=== PATIENT | female | born 1980 | race American Indian/Alaskan Native ===

== ENCOUNTER 2016-11-27 07:48 | Inpatient (IN) | payer BC, MEDICAID ==
--- NOTE | 2016-11-27 09:56 | History and Physical Report ---
History of Present Illness Date of examination: 11/27/16 Date of admission: 11/27/16 07:49 Chief complaint: Intense Labor Pains History of present illness: Early entry to care, co-jaleel with [facility] due to AMA and elevated blood pressures. States she has never been diagnosed with CHTN, but had elevated blood pressures on and off throughout the . course complicated by Anemia (taking FESO4), low Vitamin D (taking Vit. D), and a abnormal 1hour GTT, following a normal 3 hour 3GTT. Elevated blood pressures upon admission, denies HAs, visual changes, and epigastic pain, admits to mild nausea and a trace of edema. 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) Family/Genetic History: none Social history: no significant social history, single, smoking - Obstetrical History Expected Date of Delivery: 12/08/16 Actual Gestation: 38 Week(s) 3 Day(s) : 4 Para: 2 Hx # Term Pregnancies: 2 Spontaneous Abortions: 1 Number of Living Children: 2 #1 Infant Gender: Female year: 1,[birth year] Birthweight: 3.175 kg Method of Delivery: Vaginal Gestational age at delivery: 40 #2 Infant Gender: Female year: 2,[birth year] Birthweight: 3.629 kg Method of Delivery: Vaginal Gestational age at delivery: 40 Medications and Allergies Allergies Allergy/AdvReac Type Severity Reaction Status Date / Time No Known Allergies Allergy Verified 11/27/16 09:35 Home Medications Medication Instructions Recorded Confirmed Last Taken Type Cyclobenzaprine HCl [Flexeril 5 MG 5 mg PO TID #15 tab 06/17/16 Unknown Rx TAB] Active Meds: Active Medications Lactated Ringer's (Lactated Ringers) 1,500 mls @ 2,250 mls/hr IV PREOP NR Stop: 11/27/16 18:00 Review of Systems Breasts: normal Gastrointestinal: nausea Genitourinary: normal appearance Rectal Exam: deferred - Vital Signs Vital signs: Vital Signs Pulse BP Pulse Ox 98 H 148/101 99 11/27/16 08:08 11/27/16 08:08 11/27/16 08:08 Temp Pulse Resp BP Pulse Ox 98.1 F 96 H 18 155/98 100 11/27/16 08:18 11/27/16 09:42 11/27/16 08:18 11/27/16 09:42 11/27/16 08:54 - Physical Exam Breasts: Positive: normal Lungs: Positive: Clear to auscultation, Normal air movement Abdomen: Positive: normal appearance, soft, normal bowel sounds Genitourinary (Female): Positive: normal external genitalia, normal perenium Vagina: Positive: normal moisture Uterus: Positive: enlarged Anus/Rectum: Positive: normal perianal skin Extremities: Positive: normal - Obstetrical FHR: category 2 FHR comments: FHR: 138, moderate varability, +accels, +occ mild varabile decel, CTX q 1-2mins Cervical Dilatation: 5 (Large amount of clear fluid upon AROM ar 0935) Cervical Effacement Percentage: 80 station: -1 Uterine Contraction Frequency (min): 1-2 Uterine Contraction Duration: 40secs Uterine Contraction Pattern: Regular Uterine Tone Measurement Phase: Contraction Uterine Contraction Intensity: Strong/Firm Results All other labs normal. Assessment and Plan A: IUP at 38 3/7 Weeks Gestational HTN Category II Tracing Active Labor GBS Negative P: Admit to L&D per routine orders H labs (results pending) AROM (clear) Prepare for Epidural Consult Dr. Sánchez
[2016-11-27] MEDS ORDERED: SUBLIMAZE IV PRN (10:00)
[2016-11-27] MEDS ORDERED: STADOL IV PRN (10:00)
[2016-11-27] MEDS ORDERED: MINERAL OIL PO PRN (10:00)
[2016-11-27] MEDS ORDERED: BRETHINE SUB-Q PRN (10:00)
[2016-11-27] MEDS ORDERED: ZOFRAN IV PRN (10:00)
[2016-11-27] MEDS ORDERED: ePHEDrine SULFATE IV PRN ×2 (10:00→13:00)
[2016-11-27] MEDS ORDERED: BRETHINE IVP PRN (10:00)
[2016-11-27] MEDS ORDERED: LACTATED RINGERS 1,000 ML IV SCH (10:00)
[2016-11-27] MEDS ORDERED: NARCAN 0.4 MG/1 ML IV PRN (10:00)
[2016-11-27 10:53] LABS: Hematocrit 32.7 % (30.3-42.9); Hemoglobin 10.5 gm/dl (10.1-14.3); Mean Corpuscular HGB Conc 32 % (30-34); Mean Corpuscular Hemoglobin 28 pg (28-32); Mean Corpuscular Volume 86 fl (79-97); Platelet Count 163 K/mm3 (140-440); Red Blood Count 3.79 M/mm3 (3.65-5.03); White Blood Count 11.1 K/mm3 (4.5-11.0)
--- NOTE | 2016-11-27 11:04 | Progress Note ---
Assessment and Plan A: IUP at 38 3/7 Weeks Preeclampsia BPs (140s/90-100s to 170s/110s) Category I Tracing Active Labor GBS Negative P: Start Magnesium Sulfate 4G bolus/2Gs hourly PIH labs (results pending) Subjective - Subjective Date of service: 11/27/16 Interval history: Early entry to care, co-jaleel with [facility] due to AMA and elevated blood pressures. States she has never been diagnosed with CHTN, but had elevated blood pressures on and off throughout the . course complicated by Anemia (taking FESO4), low Vitamin D (taking Vit. D), and a abnormal 1hour GTT, following a normal 3 hour 3GTT. Elevated blood pressures upon admission, denies HAs, visual changes, and epigastic pain, admits to mild nausea and a trace of edema. Patient reports: other (Denies HAs, Visual Changes, and epigastic pain; admits to mild nausea) Objective - Vital Signs Vital Signs: Vital Signs - 12hr 11/27/16 11/27/16 11/27/16 08:08 08:13 08:18 Temperature 98.1 F Pulse Rate 98 H 104 H 97 H Respiratory 18 Rate Blood Pressure 148/101 O2 Sat by Pulse 99 99 99 Oximetry 11/27/16 11/27/16 11/27/16 08:23 08:24 08:29 Temperature Pulse Rate 100 H 89 115 H Respiratory Rate Blood Pressure 163/116 O2 Sat by Pulse 99 99 96 Oximetry 11/27/16 11/27/16 11/27/16 08:30 08:42 08:49 Temperature Pulse Rate 104 H 91 H 91 H Respiratory Rate Blood Pressure 154/95 O2 Sat by Pulse 97 100 Oximetry 11/27/16 11/27/16 11/27/16 08:54 08:58 09:12 Temperature Pulse Rate 93 H 101 H 90 Respiratory Rate Blood Pressure 168/92 151/99 O2 Sat by Pulse 100 Oximetry 11/27/16 11/27/16 11/27/16 09:28 09:42 09:57 Temperature Pulse Rate 92 H 96 H 88 Respiratory Rate Blood Pressure 155/93 155/98 156/102 O2 Sat by Pulse Oximetry 11/27/16 11/27/16 11/27/16 09:59 10:01 10:04 Temperature Pulse Rate 92 H 77 Respiratory 18 Rate Blood Pressure O2 Sat by Pulse 100 100 Oximetry 11/27/16 11/27/16 11/27/16 10:09 10:12 10:14 Temperature Pulse Rate 77 82 89 Respiratory Rate Blood Pressure 164/88 O2 Sat by Pulse 100 100 Oximetry 11/27/16 11/27/16 11/27/16 10:19 10:24 10:28 Temperature Pulse Rate 76 84 82 Respiratory Rate Blood Pressure 175/87 O2 Sat by Pulse 100 100 Oximetry 11/27/16 11/27/16 11/27/16 10:29 10:34 10:39 Temperature Pulse Rate 74 100 H 93 H Respiratory Rate Blood Pressure O2 Sat by Pulse 100 100 100 Oximetry 11/27/16 11/27/16 11/27/16 10:44 10:45 10:49 Temperature Pulse Rate 95 H 107 H 93 H Respiratory Rate Blood Pressure 175/109 O2 Sat by Pulse 100 100 Oximetry 11/27/16 11/27/16 10:54 10:57 Temperature Pulse Rate 89 83 Respiratory Rate Blood Pressure 141/92 O2 Sat by Pulse 100 Oximetry - Exam Breasts: deferred, normal Cardiovascular: Regular rate Lungs: Clear to auscultation Abdomen: Present: normal appearance FHR: category 1 Uterine Contraction Monitor Mode: External Cervical Dilatation: 5 Cervical Effacement Percentage: 80 station: -1 Uterine Contraction Frequency (min): 1-2 Uterine Contraction Pattern: Regular Uterine Contraction Intensity: Strong/Firm Extremities: edema (trace edema) - Labs Labs: Abnormal Labs 11/27/16 09:11 WBC 11.1 H RDW 17.0 H Laboratory Results - last 24 hr 11/27/16 11/27/16 09:11 09:11 WBC 11.1 H RBC 3.79 Hgb 10.5 Hct 32.7 MCV 86 MCH 28 MCHC 32 RDW 17.0 H Plt Count 163 Blood Type A POSITIVE
[2016-11-27] MEDS ORDERED: MAGNESIUM SULFATE 4GM/100ML 4 GM/100 ML BAG IV ONE (11:30)
[2016-11-27] MEDS ORDERED: ePHEDrine SULFATE ONE (11:31)
[2016-11-27] MEDS ORDERED: MAGNESIUM SULFATE 40GM/1000ML 40 GM/1,000 ML BAG IV SCH ×2 (12:00→17:00)
--- NOTE | 2016-11-27 12:16 | Anesthesia Consultation ---
Anesthesia Consult and Med Hx Date of service: 11/27/16 - Airway Anesthetic Teeth Evaluation: Good ROM Head & Neck: Adequate Mental/Hyoid Distance: Adequate Mallampati Class: Class II Intubation Access Assessment: Probably Good - Pre-Operative Health Status ASA Pre-Surgery Classification: ASA2 Proposed Anesthetic Plan: Epidural, Spinal - Pulmonary Hx Asthma: No - Cardiovascular System Hx Hypertension: No (PIH) - Central Nervous System Hx Seizures: No Hx Psychiatric Problems: No - Endocrine Hx Renal Disease: No Hx Hypothyroidism: No Hx Hyperthyroidism: No - Hematic Hx Anemia: Yes (taking Iron) Hx Sickle Cell Disease: No - Other Systems Hx Alcohol Use: No
[2016-11-27 12:46] LABS: Bacteria,Urine 1+ /HPF (Negative); Bilirubin,Urine NEG (Negative); Blood,Urine NEG (Negative); Ketones,Urine 80 mg/dL (Negative); Leukocyte Esterase,Urine NEG (Negative); Mucus,Urine 2+ /HPF; Nitrite,Urine NEG (Negative); Urobilinogen,Urine < 2.0 mg/dL (<2.0)
[2016-11-27] MEDS ORDERED: BENADRYL IV PRN (13:00)
[2016-11-27] MEDS ORDERED: fentaNYL-BUPIV 2 MCG/ML-0.125% 200 MCG/100 ML BAG EPIDURAL SCH (13:00)
[2016-11-27] MEDS: LACTATED RINGERS 1,500 ML IV NR ×2 (13:23→13:27)
[2016-11-27 13:46] LABS: Alanine Aminotransferase 12 units/L (7-56); Lactate Dehydrogenase 189 units/L (91-180); Uric Acid 3.2 mg/dL (3.5-7.6)
[2016-11-27] MEDS ORDERED: PITOCin/NS 30 UNIT/500ML 30,000 MILLIUNITS/500 ML BAG IV ONE (13:57)
[2016-11-27] MEDS ORDERED: PITOCin/NS 30 UNIT/500ML 30 UNITS/500 ML BAG IV SCH (14:00)
--- NOTE | 2016-11-27 14:06 | Progress Note ---
Assessment and Plan A: IUP at 38 3/7 Weeks Preeclampsia Category I Tracing Active Labor GBS Negative P:Continue MagSO4 2G/hourly Start Pitocin Augmentation Multiple Maternal Position Changes Subjective - Subjective Interval history: Early entry to care, co-jaleel with [facility] due to AMA and elevated blood pressures. States she has never been diagnosed with CHTN, but had elevated blood pressures on and off throughout the . course complicated by Anemia (taking FESO4), low Vitamin D (taking Vit. D), and a abnormal 1hour GTT, following a normal 3 hour 3GTT. Elevated blood pressures upon admission, denies HAs, visual changes, and epigastic pain, admits to mild nausea and a trace of edema. Patient reports: other (resting well under epidural anesthesia; voices no compliants) Objective - Vital Signs Vital Signs: Vital Signs - 12hr 11/27/16 11/27/16 11/27/16 08:08 08:13 08:18 Temperature 98.1 F Pulse Rate 98 H 104 H 97 H Respiratory 18 Rate Blood Pressure 148/101 O2 Sat by Pulse 99 99 99 Oximetry 11/27/16 11/27/16 11/27/16 08:23 08:24 08:29 Temperature Pulse Rate 100 H 89 115 H Respiratory Rate Blood Pressure 163/116 O2 Sat by Pulse 99 99 96 Oximetry 11/27/16 11/27/16 11/27/16 08:30 08:42 08:49 Temperature Pulse Rate 104 H 91 H 91 H Respiratory Rate Blood Pressure 154/95 O2 Sat by Pulse 97 100 Oximetry 11/27/16 11/27/16 11/27/16 08:54 08:58 09:12 Temperature Pulse Rate 93 H 101 H 90 Respiratory Rate Blood Pressure 168/92 151/99 O2 Sat by Pulse 100 Oximetry 11/27/16 11/27/16 11/27/16 09:28 09:42 09:57 Temperature Pulse Rate 92 H 96 H 88 Respiratory Rate Blood Pressure 155/93 155/98 156/102 O2 Sat by Pulse Oximetry 11/27/16 11/27/16 11/27/16 09:59 10:01 10:04 Temperature Pulse Rate 92 H 77 Respiratory 18 Rate Blood Pressure O2 Sat by Pulse 100 100 Oximetry 11/27/16 11/27/16 11/27/16 10:09 10:12 10:14 Temperature Pulse Rate 77 82 89 Respiratory Rate Blood Pressure 164/88 O2 Sat by Pulse 100 100 Oximetry 11/27/16 11/27/16 11/27/16 10:19 10:24 10:28 Temperature Pulse Rate 76 84 82 Respiratory Rate Blood Pressure 175/87 O2 Sat by Pulse 100 100 Oximetry 11/27/16 11/27/16 11/27/16 10:29 10:34 10:39 Temperature Pulse Rate 74 100 H 93 H Respiratory Rate Blood Pressure O2 Sat by Pulse 100 100 100 Oximetry 11/27/16 11/27/16 11/27/16 10:44 10:45 10:49 Temperature Pulse Rate 95 H 107 H 93 H Respiratory Rate Blood Pressure 175/109 O2 Sat by Pulse 100 100 Oximetry 11/27/16 11/27/16 11/27/16 10:54 10:57 10:59 Temperature Pulse Rate 89 83 76 Respiratory Rate Blood Pressure 141/92 O2 Sat by Pulse 100 100 Oximetry 11/27/16 11/27/16 11/27/16 11:04 11:09 11:14 Temperature Pulse Rate 89 106 H 96 H Respiratory Rate Blood Pressure 179/101 O2 Sat by Pulse 100 100 100 Oximetry 11/27/16 11/27/16 11/27/16 11:19 11:24 11:29 Temperature Pulse Rate 82 84 101 H Respiratory Rate Blood Pressure 167/72 O2 Sat by Pulse 100 100 100 Oximetry 11/27/16 11/27/16 11/27/16 11:34 11:39 11:42 Temperature Pulse Rate 99 H 101 H 83 Respiratory Rate Blood Pressure 169/75 O2 Sat by Pulse 100 100 Oximetry 11/27/16 11/27/16 11/27/16 11:44 11:49 11:54 Temperature Pulse Rate 108 H 104 H 100 H Respiratory Rate Blood Pressure O2 Sat by Pulse 100 100 100 Oximetry 11/27/16 11/27/16 11/27/16 11:57 12:02 12:04 Temperature Pulse Rate 97 H 94 H 82 Respiratory Rate Blood Pressure 157/72 150/73 141/68 O2 Sat by Pulse 100 Oximetry 11/27/16 11/27/16 11/27/16 12:06 12:07 12:08 Temperature Pulse Rate 87 86 88 Respiratory Rate Blood Pressure 141/76 147/69 O2 Sat by Pulse 100 Oximetry 11/27/16 11/27/16 11/27/16 12:10 12:12 12:14 Temperature Pulse Rate 85 83 78 Respiratory Rate Blood Pressure 145/76 151/85 136/68 O2 Sat by Pulse 100 Oximetry 11/27/16 11/27/16 11/27/16 12:16 12:17 12:18 Temperature Pulse Rate 84 83 83 Respiratory Rate Blood Pressure 136/76 132/76 O2 Sat by Pulse 100 Oximetry 11/27/16 11/27/16 11/27/16 12:20 12:22 12:27 Temperature Pulse Rate 84 81 77 Respiratory Rate Blood Pressure 143/76 O2 Sat by Pulse 100 100 Oximetry 11/27/16 11/27/16 11/27/16 12:32 12:36 12:37 Temperature Pulse Rate 84 90 75 Respiratory Rate Blood Pressure 144/84 O2 Sat by Pulse 100 100 Oximetry 11/27/16 11/27/16 11/27/16 12:42 12:47 12:51 Temperature Pulse Rate 80 86 91 H Respiratory Rate Blood Pressure 136/94 O2 Sat by Pulse 100 100 Oximetry 11/27/16 11/27/16 11/27/16 12:52 12:57 13:02 Temperature Pulse Rate 83 81 80 Respiratory Rate Blood Pressure O2 Sat by Pulse 100 100 100 Oximetry 11/27/16 11/27/16 11/27/16 13:06 13:07 13:12 Temperature Pulse Rate 80 80 89 Respiratory Rate Blood Pressure 145/79 O2 Sat by Pulse 100 100 Oximetry 11/27/16 11/27/16 11/27/16 13:17 13:21 13:22 Temperature Pulse Rate 98 H 87 87 Respiratory Rate Blood Pressure 150/75 O2 Sat by Pulse 100 100 Oximetry 11/27/16 11/27/16 11/27/16 13:27 13:32 13:36 Temperature Pulse Rate 82 83 94 H Respiratory Rate Blood Pressure 138/95 O2 Sat by Pulse 100 100 Oximetry 11/27/16 11/27/16 11/27/16 13:37 13:42 13:47 Temperature Pulse Rate 99 H 109 H 91 H Respiratory Rate Blood Pressure O2 Sat by Pulse 100 100 100 Oximetry 11/27/16 11/27/16 11/27/16 13:51 13:52 13:57 Temperature Pulse Rate 101 H 105 H 105 H Respiratory Rate Blood Pressure 139/82 O2 Sat by Pulse 100 100 Oximetry - Exam Lungs: Normal air movement Abdomen: Present: normal appearance FHR: category 1 Uterine Contraction Monitor Mode: External Cervical Dilatation: 8 (leaking a moderate amount of clear fluid) Cervical Effacement Percentage: 80 station: 0 Uterine Contraction Duration: 1-4 Uterine Contraction Pattern: Regular Uterine Tone Measurement Phase: Contraction Uterine Contraction Intensity: Moderate - Labs Labs: Abnormal Labs 11/27/16 11/27/16 09:11 09:11 WBC 11.1 H RDW 17.0 H Creatinine 0.5 L Uric Acid 3.2 L Lactate Dehydrogenase 189 H Laboratory Results - last 24 hr 11/27/16 11/27/16 11/27/16 09:11 09:11 09:11 WBC 11.1 H RBC 3.79 Hgb 10.5 Hct 32.7 MCV 86 MCH 28 MCHC 32 RDW 17.0 H Plt Count 163 Creatinine 0.5 L Estimated GFR > 60 Uric Acid 3.2 L AST 23 ALT 12 Lactate Dehydrogenase 189 H Urine Color Urine Turbidity Urine pH Ur Specific M[place] Urine Protein Urine Glucose (UA) Urine Ketones Urine Blood Urine Nitrite Urine Bilirubin Urine Urobilinogen Ur Leukocyte Esterase Urine WBC (Auto) Urine RBC (Auto) U Epithel Cells (Auto) Urine Bacteria (Auto) Urine Mucus Blood Type A POSITIVE Antibody Screen Negative 11/27/16 12:10 WBC RBC Hgb Hct MCV MCH MCHC RDW Plt Count Creatinine Estimated GFR Uric Acid AST ALT Lactate Dehydrogenase Urine Color . Urine Turbidity Clear Urine pH 6.0 Ur Specific [place] 1.019 Urine Protein 30 mg/dl Urine Glucose (UA) Neg Urine Ketones 80 Urine Blood Neg Urine Nitrite Neg Urine Bilirubin Neg Urine Urobilinogen < 2.0 Ur Leukocyte Esterase Neg Urine WBC (Auto) 4.0 Urine RBC (Auto) 5.0 U Epithel Cells (Auto) 7.0 Urine Bacteria (Auto) 1+ Urine Mucus 2+ Blood Type Antibody Screen
[2016-11-27] MEDS ORDERED: TUCKS PAD TP PRN (15:51)
[2016-11-27] MEDS ORDERED: LANSINOH TP PRN (15:51)
[2016-11-27] MEDS ORDERED: DERMOPLAST TP PRN (15:51)
[2016-11-27] MEDS ORDERED: PHENERGAN PR PRN (15:51)
[2016-11-27] MEDS ORDERED: MILK OF MAGNESIA PO PRN (15:51)
[2016-11-27] MEDS ORDERED: DULCOLAX PR PRN (15:51)
[2016-11-27 15:59] LABS: ISTAT Base Excess -13; ISTAT HCO3 15.1; ISTAT PCO2 37.4 (35-45); ISTAT PH 7.215 (7.35-7.45); ISTAT PO2 31 (80-105); ISTAT SO2 48; ISTAT TCO2 16
[2016-11-27 15:59] LABS: ISTAT Base Excess -12; ISTAT HCO3 17.1; ISTAT PCO2 47.3 (35-45); ISTAT PH 7.165 (7.35-7.45); ISTAT PO2 22 (80-105); ISTAT SO2 25; ISTAT TCO2 18
--- NOTE | 2016-11-27 15:59 | Procedure Note ---
OB Delivery Note - Delivery Date of Delivery: 11/27/16 (1537) Surgeon: JOYA JAIN Fare Enforcement Officer: JOY URBINA Estimated blood loss: 200cc - Vaginal Delivery presentation: vertex Delivery position: OA Delivery induction: none Delivery augmentation: rupture of membranes, pitocin Delivery monitor: external FHT, external uterine Route of delivery: Delivery placenta: spontaneous Delivery cord: nuchal cord, 3 umbilical vessels Episiotomy: none Delivery laceration: none Anesthesia: epidural Delivery comments: of a live 9'4 female infant over a intact perineum under epidural with Apgars of 7 and 9 at 1537 on 11/27/2016. Nuchal cord x 1, manually reduced with delivery of the body. Cord clamped and cut by CNM, and placed on the warmer. Spontaneous delivery of placenta complete and intact with [place] side presenting at 1543. Fundus is firm and midline; lochia is scant. Cord blood gasses collected x 2. - A at 1 minute: 7 at 5 minutes: 9 Infant Gender: Female (9'4")
[2016-11-27] MEDS ORDERED: SODIUM CHLORIDE FLUSH SYRINGE 10 ML IV SCH (16:00)
[2016-11-27] MEDS: PITOCin/NS 20 UNIT/1000ML DRIP 20 UNIT/1,000 ML BAG IV SCH ×2 (16:19→18:44)
[2016-11-27] MEDS: NORCO 5/325 PO PRN (20:45)
[2016-11-28] MEDS: MOTRIN PO SCH ×3 (01:01→17:52)
[2016-11-28] MEDS: NORCO 5/325 PO PRN ×2 (02:00→18:15)
[2016-11-28 06:24] LABS: Hematocrit 26.5 % (30.3-42.9); Hemoglobin 8.4 gm/dl (10.1-14.3)
--- NOTE | 2016-11-28 10:21 | Progress Note ---
Assessment and Plan A: PP Day #1 Asymptomatic Anemia Preeclampsia P: Follow routine orders Infed 100mg IM x 1 dose Continue MAgSo4 and precautions 24 hours from delivery Subjective - Subjective Date of service: 11/28/16 Interval history: Early entry to care, co-jaleel with [facility] due to AMA and elevated blood pressures. States she has never been diagnosed with CHTN, but had elevated blood pressures on and off throughout the . course complicated by Anemia (taking FESO4), low Vitamin D (taking Vit. D), and a abnormal 1hour GTT, following a normal 3 hour 3GTT. Elevated blood pressures upon admission, denies HAs, visual changes, and epigastic pain, admits to mild nausea and a trace of edema. Patient reports: appetite normal, voiding normally (Flannery in place; adquate Urine output), pain well controlled, flatus, ambulating normally, other (Denies HAs, visual changes, N&V) : doing well, bottle feeding (and ) Objective - Vital Signs Latest vital signs: Vital Signs Temp Pulse Pulse Pulse Resp BP BP 11/28/16 08:19 98.2 F 80 20 11/28/16 06:30 98.5 F 74 18 136/88 11/28/16 04:30 98.5 F 86 18 142/82 11/28/16 02:25 98.2 F 94 H 18 135/71 11/28/16 00:00 98.4 F 103 H 20 148/86 11/27/16 22:00 98.3 F 108 H 20 153/85 11/27/16 19:30 98.3 F 101 H 20 153/78 11/27/16 16:55 103 H 11/27/16 16:50 101 H 11/27/16 16:44 101 H 144/74 11/27/16 16:39 95 H 11/27/16 16:34 105 H 11/27/16 16:29 96 H 149/69 11/27/16 16:28 91 H 11/27/16 16:24 100 H 11/27/16 16:19 120 H 11/27/16 16:14 96 H 131/67 11/27/16 16:13 100 H 11/27/16 16:10 62 11/27/16 16:08 108 H 11/27/16 16:04 111 H 11/27/16 15:59 110 H 118/68 11/27/16 15:54 109 H 11/27/16 15:48 109 H 11/27/16 15:43 103 H 11/27/16 15:38 113 H 11/27/16 15:36 127 H 139/96 11/27/16 15:33 120 H 11/27/16 15:29 133 H 11/27/16 15:26 118 H 11/27/16 15:23 104 H 11/27/16 15:21 111 H 130/82 11/27/16 15:12 127 H 11/27/16 15:07 106 H 11/27/16 15:02 111 H 11/27/16 14:57 109 H 11/27/16 14:52 98 H 11/27/16 14:47 114 H 11/27/16 14:43 95 H 11/27/16 14:37 98 H 11/27/16 14:36 96 H 139/63 11/27/16 14:32 97 H 11/27/16 14:27 105 H 11/27/16 14:22 103 H 11/27/16 14:21 106 H 126/76 11/27/16 14:17 101 H 11/27/16 14:12 104 H 11/27/16 14:07 107 H 11/27/16 14:06 101 H 132/72 11/27/16 14:02 103 H 11/27/16 13:57 105 H 11/27/16 13:52 105 H 11/27/16 13:51 101 H 139/82 11/27/16 13:47 91 H 11/27/16 13:42 109 H 11/27/16 13:37 99 H 11/27/16 13:36 94 H 138/95 11/27/16 13:32 83 11/27/16 13:27 82 11/27/16 13:22 87 11/27/16 13:21 87 150/75 11/27/16 13:17 98 H 11/27/16 13:12 89 11/27/16 13:07 80 11/27/16 13:06 80 145/79 11/27/16 13:02 80 11/27/16 12:57 81 11/27/16 12:52 83 11/27/16 12:51 91 H 136/94 11/27/16 12:47 86 11/27/16 12:42 80 11/27/16 12:37 75 11/27/16 12:36 90 144/84 11/27/16 12:32 84 11/27/16 12:27 77 11/27/16 12:22 81 11/27/16 12:20 84 143/76 11/27/16 12:18 83 132/76 11/27/16 12:17 83 11/27/16 12:16 84 136/76 11/27/16 12:14 78 136/68 11/27/16 12:12 83 151/85 11/27/16 12:10 85 145/76 11/27/16 12:08 88 147/69 11/27/16 12:07 86 11/27/16 12:06 87 141/76 11/27/16 12:04 82 141/68 11/27/16 12:02 94 H 150/73 11/27/16 11:57 97 H 157/72 11/27/16 11:54 100 H 11/27/16 11:49 104 H 11/27/16 11:44 108 H 11/27/16 11:42 83 169/75 11/27/16 11:39 101 H 11/27/16 11:34 99 H 11/27/16 11:29 101 H 167/72 11/27/16 11:24 84 11/27/16 11:19 82 11/27/16 11:14 96 H 179/101 11/27/16 11:09 106 H 11/27/16 11:04 89 11/27/16 10:59 76 11/27/16 10:57 83 141/92 11/27/16 10:54 89 11/27/16 10:49 93 H 11/27/16 10:45 107 H 175/109 11/27/16 10:44 95 H 11/27/16 10:39 93 H 11/27/16 10:34 100 H 11/27/16 10:29 74 11/27/16 10:28 82 175/87 11/27/16 10:24 84 11/27/16 10:19 76 BP Pulse Ox 11/28/16 08:19 140/88 11/28/16 06:30 11/28/16 04:30 11/28/16 02:25 11/28/16 00:00 11/27/16 22:00 11/27/16 19:30 11/27/16 16:55 100 11/27/16 16:50 100 11/27/16 16:44 100 11/27/16 16:39 100 11/27/16 16:34 100 11/27/16 16:29 11/27/16 16:28 100 11/27/16 16:24 100 11/27/16 16:19 100 11/27/16 16:14 11/27/16 16:13 100 11/27/16 16:10 83 L 11/27/16 16:08 100 11/27/16 16:04 100 11/27/16 15:59 100 11/27/16 15:54 100 11/27/16 15:48 100 11/27/16 15:43 100 11/27/16 15:38 100 11/27/16 15:36 11/27/16 15:33 100 11/27/16 15:29 100 11/27/16 15:26 92 11/27/16 15:23 100 11/27/16 15:21 11/27/16 15:12 100 11/27/16 15:07 100 11/27/16 15:02 100 11/27/16 14:57 100 11/27/16 14:52 100 11/27/16 14:47 100 11/27/16 14:43 100 11/27/16 14:37 100 11/27/16 14:36 11/27/16 14:32 100 11/27/16 14:27 100 11/27/16 14:22 100 11/27/16 14:21 11/27/16 14:17 100 11/27/16 14:12 100 11/27/16 14:07 100 11/27/16 14:06 11/27/16 14:02 100 11/27/16 13:57 100 11/27/16 13:52 100 11/27/16 13:51 11/27/16 13:47 100 11/27/16 13:42 100 11/27/16 13:37 100 11/27/16 13:36 11/27/16 13:32 100 11/27/16 13:27 100 11/27/16 13:22 100 11/27/16 13:21 11/27/16 13:17 100 11/27/16 13:12 100 11/27/16 13:07 100 11/27/16 13:06 11/27/16 13:02 100 11/27/16 12:57 100 11/27/16 12:52 100 11/27/16 12:51 11/27/16 12:47 100 11/27/16 12:42 100 11/27/16 12:37 100 11/27/16 12:36 11/27/16 12:32 100 11/27/16 12:27 100 11/27/16 12:22 100 11/27/16 12:20 11/27/16 12:18 11/27/16 12:17 100 11/27/16 12:16 11/27/16 12:14 11/27/16 12:12 100 11/27/16 12:10 11/27/16 12:08 11/27/16 12:07 100 11/27/16 12:06 11/27/16 12:04 11/27/16 12:02 100 11/27/16 11:57 11/27/16 11:54 100 11/27/16 11:49 100 11/27/16 11:44 100 11/27/16 11:42 11/27/16 11:39 100 11/27/16 11:34 100 11/27/16 11:29 100 11/27/16 11:24 100 11/27/16 11:19 100 11/27/16 11:14 100 11/27/16 11:09 100 11/27/16 11:04 100 11/27/16 10:59 100 11/27/16 10:57 11/27/16 10:54 100 11/27/16 10:49 100 11/27/16 10:45 11/27/16 10:44 100 11/27/16 10:39 100 11/27/16 10:34 100 11/27/16 10:29 100 11/27/16 10:28 11/27/16 10:24 100 11/27/16 10:19 100 Intake and Output 11/27/16 11/28/16 11/28/16 22:59 06:59 14:59 Intake Total 615 1360 Output Total 4100 2600 700 Balance -1525 -1240 -700 Intake: IV 375 1000 MAGNESIUM SULFATE 40GM/ 150 400 1000ML 40 gm In 1,000 ml @ 2 GM/HR 50 mls/hr IV DIRECT JENNIFER Rx#:[id number] PITOCin/NS 20 UNIT/1000ML 225 600 DRIP 20 unit In 1,000 ml @ 125 mls/hr IV DIRECT JENNIFER Rx#:[id number] Intake, Free Water 240 360 Output: Urine 4100 2600 700 Indwelling Catheter 4100 2600 700 Other: Total, Output Amount 1600 1800 700 Estimated Blood Loss 200 - Exam Breasts: Present: normal Cardiovascular: Present: Regular rate, Other (BPS 130s-140s/70s-80s) Lungs: Present: Clear to auscultation, Normal air movement Abdomen: Present: normal appearance, soft, normal bowel sounds Uterus: Present: normal, firm, fundal height below umbilicus Extremities: Present: normal - Labs Labs: Abnormal lab results 11/27/16 11/27/16 11/27/16 Range/Units 09:11 09:11 15:53 WBC 11.1 H (4.5-11.0) K/mm3 Hgb (10.1-14.3) gm/dl Hct (30.3-42.9) % RDW 17.0 H (13.2-15.2) % POC ABG pH 7.165 L (7.35-7.45) POC ABG pCO2 47.3 H (35-45) POC ABG pO2 22 L (80-105) Creatinine 0.5 L (0.7-1.2) mg/dL Uric Acid 3.2 L (3.5-7.6) mg/dL Lactate Dehydrogenase 189 H (91-180) units/L 11/27/16 11/28/16 Range/Units 15:57 05:19 WBC (4.5-11.0) K/mm3 Hgb 8.4 L (10.1-14.3) gm/dl Hct 26.5 L D (30.3-42.9) % RDW (13.2-15.2) % POC ABG pH 7.215 L (7.35-7.45) POC ABG pCO2 (35-45) POC ABG pO2 31 L (80-105) Creatinine (0.7-1.2) mg/dL Uric Acid (3.5-7.6) mg/dL Lactate Dehydrogenase (91-180) units/L
[2016-11-28] MEDS ORDERED: INFED IM ONE (10:22)
[2016-11-28] MEDS: FEOSOL PO SCH (17:54)
[2016-11-29] MEDS: MOTRIN PO SCH ×3 (05:50→12:52)
--- NOTE | 2016-11-29 09:25 | Discharge Summary ---
Providers - Providers Date of Admission: 11/27/16 07:49 Date of discharge: 11/29/16 Attending physician: BLANCA RICHEY MD Primary care physician: BLANCA RICHEY MD Hospitalization Reason for admission: active labor Delivery: Laceration: none Discharge diagnosis: IUP at term delivered baby: female Hospital course: Patient presented to L&D in active labor. course complicated by Anemia (taking FESO4), low Vitamin D (taking Vit. D), and a abnormal 1hour GTT, following a normal 3 hour 3GTT. Elevated blood pressures upon admission, started on Magnesium Sulfate drip. of 9lb 4 os baby girl on 11/27 at 1537. Magnesium dc's on 11/28 and BPs have remained stable. H/H 05/30. Pt denies headache, visual changes, epigastric pain, shortness of breath, dizziness and nausea/vomiting. Condition at discharge: Good Disposition: DISCHARGED TO HOME OR SELFCARE Plan - Provider Discharge Summary Activity: routine, no sex for 6 weeks, no heavy lifting 4 weeks, no strenuous exercise Diet: routine Instructions: routine Additional instructions: [] Call your doctor immediately for: * Fever > 100.5 * Heavy vaginal bleeding ( >1 pad per hour) * Severe persistent headache * Shortness of breath * Reddened, hot, painful area to leg or breast * Drainage or odor from incision. * Headache unresolved with Tylenol, visual changes or nausea/vomiting * Keep incision clean and dry at all times and follow doctor's instructions regarding bathing/showering - Follow up plan Follow up: [facility] [Provider Group] - 7 Days Forms: Work/School Excuse Out Patient
--- NOTE | 2016-11-29 09:36 | Progress Note ---
Assessment and Plan A: PPD2 Asymptomatic anemia Pre-eclamspia P: Routine care Consulted with Dr. Alcantar and he agrees with plan d/c today with normal pre- eclamspia warnings and with one week follow up for BP check Contraception plans include BTL Patient instructed to continue iron supplementation and vitamins throughout recovery period. Subjective - Subjective Date of service: 11/29/16 Principal diagnosis: PPD2 Patient reports: appetite normal, voiding normally, pain well controlled, ambulating normally : doing well Objective - Vital Signs Latest vital signs: Vital Signs Temp Pulse Pulse Resp BP BP 11/29/16 08:30 98.5 F 90 20 130/76 11/29/16 00:00 98.2 F 76 20 139/71 11/28/16 15:51 98.2 F 76 20 144/86 11/28/16 14:10 96 H 20 150/83 11/28/16 12:04 98.3 F 89 18 141/70 11/28/16 10:05 92 H 20 240/82 Intake and Output 11/28/16 11/29/16 11/29/16 22:59 06:59 14:59 Intake Total 605 120 Output Total 1100 330 Balance -495 -210 Intake: IV 125 Lactated Ringers 1,000 ml 75 @ 125 mls/hr IV DIRECT JENNIFER Rx#:[id number] MAGNESIUM SULFATE 40GM/ 50 1000ML 40 gm In 1,000 ml @ 2 GM/HR 50 mls/hr IV DIRECT JENNIFER Rx#:[id number] Oral 480 Intake, Free Water 120 Output: Urine 1100 330 Indwelling Catheter 400 Void 700 330 Other: Total, Intake Amount 240 Total, Output Amount 300 150 # Voids Void 1 - Exam Cardiovascular: Present: Regular rate Lungs: Present: Normal air movement Abdomen: Present: normal bowel sounds Vulva: both: normal (scant lochia) Uterus: Present: normal, firm, fundal height below umbilicus Extremities: Present: normal Deep Tendon Reflex Grade: Normal +2
[2016-11-29] MEDS: FEOSOL PO SCH ×2 (10:37)
[2016-11-29 16:30] VITALS: BP 132/78
== END 2016-11-29 18:15 | disposition home or self-care (01) | DRG 775 ==
LOC: TRG 07:48 → LD 07:49 → OB 19:00
PROVIDERS: ADMIT Obstetrics & Gynecology; ATTEND Obstetrics & Gynecology
PROC: 10E0XZZ Delivery of Products of Conception, External Approach (ICD-10-PCS; principal; 2016-11-27)
PROC: 10907ZC Drainage of Amniotic Fluid, Therapeutic from Products of Conception, Via Natural or Artificial Opening (ICD-10-PCS; 2016-11-27)
PROC: 00HU33Z Insertion of Infusion Device into Spinal Canal, Percutaneous Approach (ICD-10-PCS; 2016-11-27)
PROC: 3E0R3CZ (ICD-10-PCS; 2016-11-27)
DX: O14.94 Unspecified pre-eclampsia, complicating childbirth (principal); O99.02 Anemia complicating childbirth; O69.81X0 Labor and delivery complicated by cord around neck, without compression, not applicable or unspecified; D64.9 Anemia, unspecified; Z3A.38 38 weeks gestation of pregnancy; O09.523 Supervision of elderly multigravida, third trimester; Z37.0 Single live birth
CPT/HCPCS: 36415; 81001; 82565; 82803; 83615; 84450; 84460; 84550; 85014; 85018; 85027; 86850; 86900; 86901; J0595; J1750; J2590; J3475; J7120